=== PATIENT | male | born 2000 | race Two or more races ===

== ENCOUNTER 2021-01-08 15:26 | Emergency (ER) | payer MEDICAID ==
[~2021-01-08] VITALS: Ht 185.4 cm; Wt 61.2 kg
[2021-01-08 15:52] LABS: Basophils # (auto) 0 10 ^3/uL (0-0.2); Basophils % (auto) 0.3 % (0.0-2.0); Eosinophils # (auto) 0 10 ^3/uL (0-0.8); Eosinophils % (auto) 0.3 % (0.0-7.0); Hematocrit 48.2 % (41.0-53.0); Hemoglobin 16.6 g/dL (13.5-17.5); Lymphocytes # (auto) 2.4 10 ^3/uL (0.4-5.4); Lymphocytes % (auto) 24.1 % (10.0-50.0); Mean Corpuscular Hemoglobin 30.2 pg (28.0-32.0); Mean Corpuscular Hgb Conc. 34.5 g/dL (32.0-36.0); Mean Corpuscular Volume 87.6 fL (80.0-100.0); Monocytes # (auto) 1.1 10 ^3/uL (0-1.3); Monocytes % (auto) 11.3 % (0.0-12.0); Neutrophils # (auto) 6.4 10 ^3/uL (1.6-8.6); Nucleated Red Blood Cells % 0.1 %; Red Cell Distribution Width 13.2 % (11.8-14.3); White Blood Cell 9.9 10^3/uL (4.4-10.8)
[2021-01-08 16:05] LABS: Albumin 5.2 g/dL (3.4-5.0); Calcium 9.9 mg/dL (8.5-10.1); Potassium 3.4 mmol/L (3.5-5.1)
[2021-01-08 16:09] LABS: BUN/Creatinine Ratio 17.9; Bilirubin, Total 4.6 mg/dL (0.2-1.0); Total Protein 8.8 g/dL (6.4-8.2)
[2021-01-08] MEDS ORDERED: SODIUM CHLORIDE 0.9% 1,000 ML IVB ONE (16:45)
[2021-01-08] MEDS ORDERED: PROCHLORPERAZINE EDISYLATE 5 MG/ML 2ML VIAL IV ONE (16:45)
[2021-01-08] MEDS ORDERED: POTASSIUM EFFERVESENT TAB 25 MEQ PO ONE (17:30)
[2021-01-08 20:00] VITALS: BP 131/82
== END 2021-01-09 01:10 | disposition home or self-care (01) ==
LOC: ER 15:26
DX: E80.6 Other disorders of bilirubin metabolism (principal); R11.2 Nausea with vomiting, unspecified; K72.90 Hepatic failure, unspecified without coma
CPT/HCPCS: 36415; 76705; 80053; 83690; 83735; 85025; 96361; 96374; 99284; J0780; J7030

== ENCOUNTER 2023-11-05 01:17 | Emergency (ER) | payer MEDICAID ==
[~2023-11-05] VITALS: Ht 185.4 cm; Wt 63.0 kg
[2023-11-05 01:28] VITALS: BP 126/81; PULSE 80; RESP 16; O2SAT 98
[2023-11-05] MEDS: ONDANSETRON ODT 4 MG TAB PO ONE (01:46)
== END 2023-11-05 02:24 | disposition left against medical advice (07) ==
LOC: ER 01:17
DX: R11.2 Nausea with vomiting, unspecified (principal); F12.10 Cannabis abuse, uncomplicated
CPT/HCPCS: 99283; Q0162

== ENCOUNTER 2024-01-03 11:54 | Emergency (ER) | payer MEDICAID ==
[~2024-01-03] VITALS: Ht 185.4 cm; Wt 65.0 kg
[2024-01-03 13:16] LABS: Basophils # (auto) 0 10 ^3/uL (0-0.2); Basophils % (auto) 0.2 % (0.0-2.0); Eosinophils # (auto) 0 10 ^3/uL (0-0.8); Hematocrit 47.7 % (41.0-53.0); Hemoglobin 17.2 g/dL (13.5-17.5); Lymphocytes # (auto) 1.8 10 ^3/uL (0.4-5.4); Lymphocytes % (auto) 11.9 % (10.0-50.0); Mean Corpuscular Hemoglobin 31.6 pg (28.0-32.0); Mean Corpuscular Hgb Conc. 35.9 g/dL (32.0-36.0); Mean Corpuscular Volume 87.8 fL (80.0-100.0); Monocytes # (auto) 1.7 10 ^3/uL (0-1.3); Monocytes % (auto) 11.1 % (0.0-12.0); Neutrophils # (auto) 11.4 10 ^3/uL (1.6-8.6); Neutrophils % (auto) 76.8 % (37.0-80.0); Nucleated Red Blood Cells % 0.1 %; Platelet Count (auto) 392 10^3/uL (140-450); Red Blood Cells 5.43 10^6/uL (4.5-5.90); Red Cell Distribution Width 13.3 % (11.8-14.3); White Blood Cell 14.9 10^3/uL (4.4-10.8)
[2024-01-03] MEDS: PANTOPRAZOLE 40 MG/10 ML VIAL INJ IV ONE (13:18)
[2024-01-03] MEDS: PROCHLORPERAZINE EDISYLATE 5 MG/ML 2ML VIAL IV ONE (13:18)
[2024-01-03] MEDS: SODIUM CHLORIDE 0.9% 1,000 ML IV ONE (13:18)
[2024-01-03 13:33] LABS: Alanine Aminotransferase 30 U/L (7-40); Albumin 5.9 g/dL (3.2-4.8); Alkaline Phosphatase 116 U/L (46-116); Anion Gap 12 (5-15); Aspartate Aminotransferase 45 U/L (13-40); BUN/Creatinine Ratio 12.9 (10.0-20.0); Blood Urea Nitrogen 17 mg/dL (9-23); Calcium 11.1 mg/dL (8.7-10.4); Carbon Dioxide 32 mmol/L (20-30); Chloride 90 mmol/L (98-107); Glucose 122 mg/dL (74-106); Lipase 45 U/L (12-53); Sodium 134 mmol/L (136-145)
[2024-01-03 13:34] LABS: Bilirubin, Total 4.2 mg/dL (0.2-1.0); Total Protein 9.3 g/dL (5.7-8.2)
[2024-01-03] MEDS: POTASSIUM CHL 20MEQ/100ML 100 ML IV ONE (15:02)
[2024-01-03 16:38] VITALS: BP 120/71; PULSE 85; RESP 17; O2SAT 97
== END 2024-01-03 17:25 | disposition left against medical advice (07) ==
LOC: ER 11:54
DX: E87.8 Other disorders of electrolyte and fluid balance, not elsewhere classified (principal); E87.6 Hypokalemia; E80.6 Other disorders of bilirubin metabolism; R74.8 Abnormal levels of other serum enzymes; D72.829 Elevated white blood cell count, unspecified; F12.10 Cannabis abuse, uncomplicated
CPT/HCPCS: 36415; 74177; 80053; 83690; 85025; 96361; 96365; 96366; 96375; 99285; J0780; J2470; J3480; J7030; Q9967